=== PATIENT | female | born 1940 | race Caucasian/White ===

== ENCOUNTER → 2020-06-11 10:50 | Outpatient (BNVA) | payer MEDICARE, SELFPAY | PROVIDERS: Family Provider Internal Medicine; PCP Family Medicine; Referring Provider Family Medicine; Visit Provider Dermatology | DX: L57.0 Actinic keratosis (principal); L82.0 Inflamed seborrheic keratosis | CPT/HCPCS: 17000; 17003; 99203 ==

== ENCOUNTER → 2020-09-03 11:18 | Outpatient (BNVA) | payer MEDICARE, SELFPAY | PROVIDERS: Family Provider Internal Medicine; PCP Family Medicine; Visit Provider Dermatology | DX: D48.9 Neoplasm of uncertain behavior, unspecified (principal) | CPT/HCPCS: 88304 ==

== ENCOUNTER 2022-05-18 06:00 | Outpatient (RCR) | payer MEDICARE, SELFPAY | END 2022-06-12 23:59 | disposition home or self-care (01) | LOC: SPT 06:00 | PROVIDERS: PCP Family Medicine; Referring Provider Orthopaedic Surgery; Visit Provider Orthopaedic Surgery | DX: M17.11 Unilateral primary osteoarthritis, right knee (principal) | CPT/HCPCS: 97110; 97161 ==

== ENCOUNTER → 2023-01-26 12:59 | Outpatient (BNVA) | payer MEDICARE, SELFPAY | PROVIDERS: PCP Family Medicine; Visit Provider Orthopaedic Surgery | DX: M43.16 Spondylolisthesis, lumbar region (principal) | CPT/HCPCS: 72110; 99214 ==

== ENCOUNTER 2023-02-27 10:43 | Outpatient (CLI) | payer MEDICARE, SELFPAY ==
--- NOTE | 2023-02-27 11:00 | MR_ITS ---
WS: [id number] MRI LUMBAR SPINE NONCONTRAST TECHNIQUE: Sagittal T1, T2 and STIR imaging. Axial T1 and T2 imaging. CLINICAL INFORMATION: lumbar pain COMPARISON: None. FINDINGS: Lumbar scoliosis. No acute compression. Grade 1 anterolisthesis L4 on L5 measuring 7 mm. Slight retrolisthesis T12 on L1, L1 on L2, and L2 on L3. L1-L2: Mild disc osteophyte complex endplate ridging. Impingement LEFT subarticular recess and sonal sing L2 nerve root. Moderate LEFT foraminal narrowing. Moderate facet arthropathy. L2-L3: Mild disc bulging with slight impingement traversing L3 nerve roots bilaterally LEFT greater t munoz RIGHT. Moderate facet arthropathy. Moderate LEFT and mild RIGHT foraminal narrowing. L3-L4: Mild disc bulging with moderate central canal stenosis. Impingement traversing L4 nerve root g reater than LEFT. Moderate facet arthropathy and ligamentum flavum hypertrophy. Moderate RIGHT forami nal narrowing. L4-L5: Grade 1 anterolisthesis L4 on L5 with moderate to severe central canal stenosis with impingeme nt traversing L5 nerve roots bilaterally. Moderate to advanced facet arthropathy with ligamentum flav um hypertrophy. Moderate RIGHT foraminal narrowing. L5-S1: Mild disc bulging with slight effacement of ventral thecal sac. Impingement traversing S1 nerv e roots bilaterally with mild central canal stenosis. Moderate facet arthropathy. Mild bilateral fora moises narrowing. Visualized pelvic bony structures: Normal. Paravertebral soft tissues: Normal. MR/MR lumbar spine wo con* [id number] IMPRESSION: 1. Mild lumbar curve. No acute compression. Grade 1 anterolisthesis L4 on L5. 2. Moderate to severe central canal stenosis L4-L5 with impingement traversing L5 nerve roots bilaterally. 3. Moderate central canal stenosis L3-L4 with impingement traversing L4 nerve roots. 4. Mild to moderate multilevel foraminal narrowing worse at RIGHT L3-L4, and R IGHT L4-L5. 5. Moderate to advanced facet arthropathy L3-L4 L4-L5 and L5-S1.
== END 2023-02-27 10:44 | disposition home or self-care (01) ==
PROVIDERS: PCP Family Medicine; Visit Provider Orthopaedic Surgery
DX: M43.16 Spondylolisthesis, lumbar region (principal); M43.9 Deforming dorsopathy, unspecified; M48.061 Spinal stenosis, lumbar region without neurogenic claudication; M47.816 Spondylosis without myelopathy or radiculopathy, lumbar region
CPT/HCPCS: 72148

== ENCOUNTER → 2023-03-22 10:36 | Outpatient (BNVA) | payer MEDICARE, SELFPAY | PROVIDERS: PCP Family Medicine; Visit Provider Nurse Practitioner Family | DX: L85.3 Xerosis cutis (principal); Z71.89 Other specified counseling; D22.5 Melanocytic nevi of trunk; L81.4 Other melanin hyperpigmentation; L82.1 Other seborrheic keratosis; L57.8 Other skin changes due to chronic exposure to nonionizing radiation; Z85.820 Personal history of malignant melanoma of skin; Z85.828 Personal history of other malignant neoplasm of skin; Z80.8 Family history of malignant neoplasm of other organs or systems; L98.8 Other specified disorders of the skin and subcutaneous tissue; L57.0 Actinic keratosis | CPT/HCPCS: 17000; 17003; 99214 ==

== ENCOUNTER → 2023-03-28 08:52 | Outpatient (BNVA) | payer MEDICARE, SELFPAY | PROVIDERS: PCP Family Medicine; Visit Provider Orthopaedic Surgery | DX: M43.16 Spondylolisthesis, lumbar region (principal); Z01.818 Encounter for other preprocedural examination | CPT/HCPCS: 36415; 80053; 85025; 99214 ==

== ENCOUNTER 2023-04-19 16:29 | Inpatient (IN) | payer MEDICARE, SELFPAY ==
[2023-04-12 11:16] VITALS: BMI 25.7
--- NOTE | 2023-04-12 11:31 | P.ANESASSM_ITS ---
Pre-Anesthetic Assessment Height/Weight: Height 1.6 m Weight 65.771 kg Operation Date: 04/19/23 13:20 Proposed Procedures p Percutaneous Instrumentation Fusion at L4/5: [id number],M43.16(Not Applicable) - Roosevelt Brewer, Familial anesthetic complications: None Social No alcohol and No tobacco Exam alert, oriented x 3, clear to auscultation bilaterally and regular rate & rhythm Airway Mallampati: Class II Dentition: false CV/HEM Hypertension Metabolic Hyperlipidemia Anesthetic Plan ASA status: 2 Anesthesia: General Risk of > 500 ml blood loss (7ml/kg in children): No Medications/Allergies Home Medications Medication Instructions Recorded Confirmed Last Taken Type atorvastatin 10 mg tablet 10 mg PO DAILY 06/11/20 04/12/23 04/12/23 History lisinopril 20 mg tablet 20 mg PO BID 06/11/20 04/12/23 04/12/23 History oxybutynin chloride 15 mg 15 mg PO DAILY 06/11/20 04/12/23 04/12/23 History tablet,extended release 24 hr amlodipine 5 mg tablet 5 mg PO DAILY 06/06/22 04/12/23 04/12/23 History docusate sodium 100 mg capsule 100 mg PO DAILY 06/06/22 04/12/23 04/12/23 History intraoperative neuromonitoring #1 ea 04/07/23 Unknown Rx meloxicam 15 mg tablet 15 mg PO DAILY 04/12/23 04/12/23 04/12/23 History Allergies Allergy/AdvReac Type Severity Reaction Status Date / Time No Known Allergies Allergy Verified 04/12/23 11:14 [facility] Anesthesia Medical History (Updated 04/12/23 @ 09:42 by Abbie Cartagena MD) History of malignant melanoma HTN (hypertension) Surgical History History of left knee replacement Family History Sister Cancer Social History Smoking and tobacco status: never smoked Alcohol intake: never Data Anesthesia Cardiac Studies: No Data to Display
[2023-04-19] VITALS (27 sets, daily range): BP systolic 109–157; BP diastolic 64–89; PULSE 47–78; RESP 15–18; TEMP 36.1–37.2; O2SAT 90–99
--- NOTE | 2023-04-19 | XR_ITS ---
WS: [id number] Lumbar spine, C-arm fluoroscopy views, 04/19/2023 Clinical Data: percutaneous lumbar fusion L4-5 Comparison: Lumbar spine, 01/26/2023 Findings: Dr. Brewre performed a posterior lumbosacral fusion L4-L1 XR/XR lumbar spine 2-3V* [id number] Impression: Posterior lumbosacral fusion.
[2023-04-19] MEDS: sodium chloride 0.9% 1,000 ML 30 ML IV (09:43)
--- NOTE | 2023-04-19 09:46 | W.PM.OPSUD ---
Surgery/Procedure H&P Update DATE OF PROCEDURE: April 19, 2023 DATE H&P PERFORMED: 03/28/23 H&P UPDATE INFORMATION: I have reviewed H&P completed within last 30 days, I have examined patient prior to procedure and No changes to prior documentation PREOP DIAGNOSIS: DDD Lumbar, spondylolisthesis L4-5, PLANNED PROCEDURE: Operation Date: 04/19/23 10:20 Proposed Procedures p Percutaneous Instrumentation Fusion at L4/5: [id number],M43.16(Not Applicable) - Roosevelt Brewer DO
[2023-04-19] MEDS: ceFAZolin 2,000 MG in sodium chloride 0.9% (plus) 50 ML 100 MG IV ×2 (10:32→17:41)
[2023-04-19] MEDS: lidocaine-epi 2% 20 mL INJ INJECTION (11:02)
--- NOTE | 2023-04-19 13:00 | P.OP_ITS ---
Operative Report Date of procedure: April 19, 2023 Pre-op diagnosis: Preop Diagnosis DDD Lumbar, spondylolisthesis L4-5, Post-op diagnosis: same Procedure done: 1. L4-S1 posterior spine fusion 2. L4 - S1 instrumentation 3. use of computer navigation / stereotactic 4. use of allograft Surgeon: Roosevelt Brewer Curb Machine Operator: Ruben Phillips Curb Machine Operator: The surgical corsetier, Ruben Phillips, PAC was needed for his expertise with spine surgery. He was important and necessary throughout the procedure to complete in a safe and timely manner. He assisted with patient positioning prepping and draping tissue retraction suctioning of the operative field protection of thecritical structures and tissue closure Estimated blood loss (mL): 50 Procedure: 1. L4-S1 posterior spine fusion 2. L4 - S1 instrumentation 3. use of computer navigation / stereotactic 4. use of allograft Patient was brought to the operative suite. After undergoing anesthesia patient was placed in the prone position. Neuro monitoring was attached. Patient was then prepped and draped in normal sterile fashion. First step was to place the fiducial for computer navigation. 2 pins were placed into the right iliac crest. The fiducial was attached to the iliac crest. In the serum was spun around the patient. The information from serum was then loaded in the computer for later use with the computer navigation. This was later used for the placement of the pedicle screws. Next tension was brought to placing the pedicle screws. This was done by placing a computer navigated awl. Followed by placing a wire. After the wire was placed blunt dissection was made down to the facets. The drill was then placed and the facets were decorticated. Ostial amp bone graft was then packed into the facets. And then the wire was pulled. And then a computer navigated pedicle screw was then placed. This process was repeated at S1 bilaterally, L5 bilaterally, and L4 bilaterally. After the screws were placed the neuro monitoring probe was used to check that the screws were not having any interference with any of the pedicle screws using the neuro monitoring. Once all the screws were placed C-arm was brought in to confirm the location. After this was completed then the rods were placed subcutaneously into the screws. Once the rods were placed in the screw tulips. The caps were then placed to lock the stanley into position. The screw caps were then torqued and locked into position. The towers were then broken off of the screws. AP and lateral fluoroscopy were brought in to ensure that the rods and screws were in the appropriate position. Was then irrigated and closed with Vicryl and Monocryl suture. Sterile dressings were applied. Patient was then transferred to the PACU in stable condition.
[2023-04-19] MEDS: HYDROmorphone 1 mg/mL INJ 1 mL 0.5 MG IVP ×3 (13:01→13:30)
[2023-04-19] MEDS: ketorolac 30 mg/mL INJ IVP (14:30)
--- NOTE | 2023-04-19 14:58 | SUR.EXTENDED ---
patient is awake and alert. patient has 2L o2 by WA with sats at 97%. patient has had pain in back, medicated per orders. patient has landeros draining urine. also has SCD in place on both legs. patients in room with her, son in room too.
[2023-04-19] MEDS: HYDROcodone-acetaminophen 5-325 mg Tablet PO ×2 (15:23→21:18)
--- NOTE | 2023-04-19 16:08 | SUR.EXTENDED ---
patient care being handed over to Yissel LEPE. patient currently comfortable. dressing checked, dry and intact. landeros emptied. patient awake and alert on 2L O2
--- NOTE | 2023-04-19 16:14 | SUR.EXTENDED ---
report called to Ting LEPE
--- NOTE | 2023-04-19 17:00 | ANE.PACU2 ---
Inpatient post-anesthesia follow up: Airway intact: Yes Vital signs: Temperature 98.4 F Pulse Rate 63 Respiratory Rate 18 Blood Pressure 108/57 Pulse Oximetry 93 Oxygen Delivery Me thod [ Nasal Cannula Current Rate & Del bryan] Oxygen Delivery Me thod Room Air Oxygen Flow Rate [ Current Rate 1 & Delivery] Oxygen Flow Rate 1 Fraction of Inspir ed Oxygen Hydration adequate: Yes Nausea and vomiting: No Pain level: 1 Mental status: Baseline
[2023-04-19] MEDS: docusate sodium 100 mg Capsule PO (17:24)
[2023-04-19] MEDS: lactated ringers 1,000 ML 90 ML IV (17:24)
[2023-04-19] MEDS: lisinopril 20 mg Tablet PO (17:25)
[2023-04-20] MEDS: diphenhydrAMINE 50 mg Capsule PO (00:45)
[2023-04-20] MEDS: ceFAZolin 2,000 MG in sodium chloride 0.9% (plus) 50 ML 100 MG IV ×2 (03:22→11:01)
[2023-04-20] MEDS: lactated ringers 1,000 ML 90 ML IV (03:25)
[2023-04-20 04:00] VITALS: BP 115/68; PULSE 51; RESP 16; TEMP 37.1; O2SAT 96
--- NOTE | 2023-04-20 07:24 | PM.PN ---
Subjective Subjective: POD 1 Patient resting comfortably. Reports moderate back pain. Denies any chest pain, shortness of breath, headaches. Vitals/I&O/Wt Last Vital Signs Temp 98.7 F 04/20/23 04:00 Pulse 51 L 04/20/23 04:00 Resp 16 04/20/23 04:00 BP 115/68 04/20/23 04:00 Pulse Ox 96 04/20/23 04:00 O2 Del Method Room Air 04/20/23 04:00 O2 Flow Rate 1 04/19/23 23:51 04/19/23 04/20/23 04/20/23 22:59 06:59 14:59 Intake Total 998 / 1048 951.5 / 1999.5 Output Total 300 / 520 500 / 1020 Balance 698 / 528 451.5 / 979.5 Physical Exam Narrative: Patient presents alert and oriented x3 with a good general appearance normal mood and affect. Normal coordination normal stability. Mild tenderness around the incisional site with the incision appear to be healing nicely. No signs of erythema or drainage. No signs of infection. Patient denies any fevers or chills. 5/5 motor strength both lower extremities with negative straight leg raise bilaterally. Calves are supple no medial thigh tenderness. Pulses are 2+ at the dorsalis pedis and posterior tibial region. Good capillary refill throughout normal sensation light touch both lower extremities. Urinary Catheter Management: Saul: Cath Placed During This Visit: yes Reason for Continuing Indwelling Catheter: Other Urinary Catheter Date of Insertion: 04/19/23 Urinary Catheter Time of Insertion: 10:45 A&P Assessment and plan (1) Status post lumbar spinal fusion: We will discontinue Saul catheter. Physical therapy to evaluate. Discussed with the patient no bending lifting or twisting. Home with incentive spirometer for pulmonary toilet. We will see her back in the office in 1 week's time for a wound check. Attestations Medical Necessity Statement*: Discharge home later this morning Coding Level of Care Code Acute Code for Chg Fwd Diagnoses Status post lumbar spinal fusion Z98.1
[2023-04-20] MEDS: HYDROcodone-acetaminophen 5-325 mg Tablet PO (07:50)
[2023-04-20] MEDS: oxybutynin chloride XL 5 MG TABLET 15 MG PO (07:50)
[2023-04-20 07:51] VITALS: BP 130/73; PULSE 56; RESP 18; TEMP 36.6; O2SAT 94
[2023-04-20] MEDS: amlodipine 5 mg Tablet PO (07:51)
[2023-04-20] MEDS: meloxicam 7.5 mg tablet 15 MG PO (07:51)
[2023-04-20] MEDS: atorvastatin 40 mg Tablet 20 MG PO (07:52)
[2023-04-20] MEDS: docusate sodium 100 mg Capsule PO (07:52)
[2023-04-20] MEDS: lisinopril 20 mg Tablet PO (07:53)
[2023-04-20 08:26] VITALS: PULSE 63; O2SAT 94
--- NOTE | 2023-04-20 10:40 | PC.CHAP ---
Pastoral Care Encounter/Spiritual Assessment Type of Contact [] Declined tanning wheel filler visit [] Patient/Family/Request visit [] Outpatient visit [] Follow-up visit [] Physician referral [] Code/Alert [x] Routine visit [] Staff referral [] Actively dying [] Patient sleeping [] Family support [] [] Out of room [] Palliative care [] [x] Receiving care in room [] Pre-surgical visit [] Trauma [] Long length of stay [] ICU visit [] Other: Relational/Emotional Strength [x] Patient feels connected with others/family/visitors/staff [] Distress [] Loneliness/isolation [] Abandonment Spirituality of Patient [x] Person of Nicolette [] Attends Christianity of their Nicolette [x] Believes in Prayer [] Reads Bible or Methodist materials [] There are Spiritual issues to be addressed Storekeeper Steward Interventions [x] Prayer [x] Active listening [x] Non-anxious presence [x] Spiritual/emotional support [] Crisis/trauma care [x] Spiritual counseling [] Bereavement support [] Provided bereavement packet [] Provided Bible/devotional materials [] Provided toy/stuffed animal, coloring book to patient or family member [] Provided Communion [] Anointing/Mohler [] Salvation [x] Completed spiritual assessment [] Other: Impact on Illness or Injury [] Angry [] Fearful [] Anxious [] Often cries [] Exhaustion [] Unable to work [] Unable to attend congregation [] Unable to walk/stand [] Unable to read [] Unable to drive [] Unable to eat/drink [] Unable to sleep [] Unable to be with family [] Patient intubated [] Other: had back surgery in some pain well have some rehab when she goes home has good attitude +1 family Time spent with patient 10 mins
[2023-04-20 11:49] VITALS: BP 108/57; PULSE 63; RESP 18; TEMP 36.9; O2SAT 93
[2023-04-20 13:15] VITALS: BP 108/57; PULSE 63; RESP 18; TEMP 36.9; O2SAT 93
--- NOTE | 2023-04-21 10:56 | P.DS_ITS ---
Discharge Providers Date of Admission: 04/19/23 16:29 Date of Discharge: April 20, 2023 Attending Provider at Admission: Roosevelt Brewer DO Attending Provider at Discharge: Roosevelt Brewer DO Primary Care Provider: Ashley Cash MD Diagnoses at Discharge Discharge Diagnosis (1) Status post lumbar spinal fusion: Status: Acute Reason for Visit Reason for Visit: M43.16 Physical Exam Urinary Catheter Management: Saul: Cath Placed During This Visit: yes, but has since been removed by the nurse Reason for Continuing Indwelling Catheter: Decision to DC Catheter Urinary Catheter Date of Insertion: 04/19/23 Urinary Catheter Time of Insertion: 10:45 Date Urinary Catheter Removed: 04/20/23 Time Urinary Catheter Discontinued: 08:00 Discharge Data Studies Completed and Pending Completed Studies During Hospitalization Category Date Time Status XR lumbar spine 2-3V* [id number] Routine Exams 04/19/23 Completed Radiology Impressions Lumbar Spine X-Ray 04/19/23 00:00 Impression: Posterior lumbosacral fusion. Vitals Last Vital Signs Temp 98.4 F 04/20/23 13:15 Pulse 63 04/20/23 13:15 Resp 18 04/20/23 13:15 BP 108/57 04/20/23 13:15 Pulse Ox 93 04/20/23 13:15 O2 Del Method Room Air 04/20/23 11:49 O2 Flow Rate 1 04/20/23 08:26 Discharge Plan Discharge Patient Disposition: Home Condition: Stable Prescriptions: New hydrocodone-acetaminophen 5-325 mg Tablet 1 - 2 tab PO Q4H PRN (Reason: Postoperative pain) Qty: 40 0RF Continued docusate sodium 100 mg capsule 100 mg PO DAILY amlodipine 5 mg tablet 5 mg PO DAILY oxybutynin chloride 15 mg tablet extended release 24hr 15 mg PO DAILY lisinopril 20 mg tablet 20 mg PO BID atorvastatin 10 mg tablet 10 mg PO DAILY (DME) intraoperative neuromonitoring See Rx Instructions .Route .MEDSUPPLY Qty: 1 0RF Rx Instructions: As directed Held meloxicam 15 mg tablet 15 mg PO DAILY Hold Instructions: Resume on 05/18/23. Discharge Orders: Discharge Order (Routine); Ordered 04/20/23 Ordered By: Ruben Phillips Referrals: Roosevelt Brewer DO [Physician] - 05/02/23 8:45 am () Discharge Diet: Advance as tolerated Discharge Activity: Limit activity as instructed Patient Instructions: Hydrocodone/Acetaminophen (By mouth), Lumbar Spinal Fusion (GEN), Opioid Safety Activity Restrictions/Additional Instructions: Thank you for choosing [facility] for your care! The following is a list of instructions, from your provider, to follow upon your discharge to ensure you have the optimal recovery from your recent injury or surgery. Follow-up care is a chase part of your treatment and safety. Be sure to make and go to all appointments and call your doctor if you are having problems. If you do not already have a follow-up appointment made, call Dr. Brewer's] office in the next 1-3 days to make follow up appointment for [1-2] weeks at [phone]. It is also a good idea to know your test results and keep a list of the medicines you take. Medications will be prescribed for you at your provider's discretion. These medications are to be used as instructed; if they are taken more often that prescribed they will not be refilled early and in most cases will not be refilled at all. > When a refill is needed, you should contact lloyd griffith 2-3 business days before your prescription runs out. Medications will NOT be refilled by medical radiation therapist providers after hours! > Many pain medications contain Tylenol (Acetaminophen). Do not consume more than 4,000 mg of Tylenol per day in total with any combination of medications. > Pain medications can cause constipation. Please use an over the counter stool softener as directed, while taking pain medications. Consult your local pharmacist with questions or recommendations on stool softeners. If constipation persists, contact our office or your primary care provider. > While under our care, you are not to receive pain medications or other controlled substances from any other provider unless our office is notified and approves. Any attempts to do so will result in refusal to prescribe any further pain medications and possible dismissal from our practice. ? Walking is essential for the healing process after surgery. We would like you to slowly advance your walking. This should be done on relatively flat clear ground (inside or out) or can be done on a treadmill. Remember this goal does not have to happen all at once, slowly increase your d istance and duration. This can be broken into more more than one walk per day as tolerated. Patients who walk as directed after surgery rarely require Physical Therapy. In the unlikely event this issue arises your provider will direct hospital staff to make the appropriate arrangements. ? No lifting over 5 pounds {a gallon of milk) or bending/twisting until further notice. Each of these activities places an unnecessary amount of stress onto the body and can impede the delicate healing process. > Instead of bending at the waist, keep your back straight and bend at the knees. > Instead of twisting your torso, keep your back straight and turn your entire body with your feet. ? You may sleep in any position which makes you comfortable. Many patients find comfort sleeping in a reclining chair. It is not abnormal to have difficulty sleeping for the first several weeks following your surgery. We recommend trying Benadry! or Tylenol PM as directed to help with your sleeping difficulties. Both medications are over the counter and available without prescription. ? NO SMOKING!!! Smoking dramatically increases the probability of developing postoperative wound infections. ? Common complaints after lumbar and/or thoracic spine surgery include, but are not limited to: numbness and/or tingling in the legs, pain around the incision and surrounding tissues, muscle spasms, or stiffness of the middle to low back. Contact our office if these symptoms persist or if an acute change occurs. ? No driving for the first 3-5days, and not while taking narcotics until seen at your follow-up appointment and cleared. There are no restrictions for riding on short trips, however if you take a longer trip, arrangements should be made to make regular stops to get out of the vehicle and stretch . ? Swelling is an unfortunate event that will take place with any surgery and is the primary source of your postoperative discomfort. While walking and regular approved activities helps control inflammation, there are additional steps you can take to minimize swelling. > Place ice over the surgical site and surrounding tissue for twenty minutes, followed by applying a low/medium heat (heating pad) for an additional twenty minutes every 1-2 hours as needed for painrelief. > You may use of over the counter anti-inflammatory medications (Ibuprofen, Motrin, Aleve, Advil, etc) as directed on the package label. These types of medicines will significantly reduce the amount of discomfort you experience after surgery from swelling. It should be noted that if you have and allergy to any of these medications, or a history of ulcers or kidney disease you should consult you primary care provider prior to starting these medications. Discharge Attestations Time Spent in Discharge Care*: less than 30 min Quality Metrics Clinical Quality Measures [ No reported AMI, CVA or VTE this stay] Coding Level of Care Code Acute Code for Chg Fwd Diagnoses Status post lumbar spinal fusion Z98.1
== END 2023-04-20 13:00 | disposition home or self-care (01) | DRG 460 ==
LOC: MEDSURG 20:44
PROVIDERS: Admitting Provider Orthopaedic Surgery; PCP Family Medicine; Visit Provider Orthopaedic Surgery
PROC: 0SG03AJ Fusion of Lumbar Vertebral Joint with Interbody Fusion Device, Posterior Approach, Anterior Column, Percutaneous Approach (ICD-10-PCS; principal; 2023-04-19 10:10)
DX: M43.16 Spondylolisthesis, lumbar region (principal); M51.36 Other intervertebral disc degeneration, lumbar region; I10 Essential (primary) hypertension
CPT/HCPCS: 51702; 72100; 97161; 97530; C1713 ×2; C9359; J0690; J1100; J1170; J1885; J2405; J2704; J3010; J3490; J7030; J7120; Q0163

== ENCOUNTER → 2023-05-02 08:30 | Outpatient (BNVA) | payer MEDICARE, SELFPAY | PROVIDERS: PCP Family Medicine; Visit Provider Orthopaedic Surgery | DX: Z98.1 Arthrodesis status (principal) | CPT/HCPCS: 99024 ==

== ENCOUNTER → 2023-05-30 10:53 | Outpatient (BNVA) | payer MEDICARE, SELFPAY | PROVIDERS: PCP Family Medicine; Visit Provider Orthopaedic Surgery | DX: Z98.1 Arthrodesis status (principal) | CPT/HCPCS: 72100; 99024 ==

== ENCOUNTER → 2023-07-18 11:02 | Outpatient (BNVA) | payer MEDICARE, SELFPAY | PROVIDERS: PCP Family Medicine; Visit Provider Physician Assistant | DX: Z47.89 Encounter for other orthopedic aftercare (principal); Z98.1 Arthrodesis status | CPT/HCPCS: 72100; 99024; 99213 ==

== ENCOUNTER → 2023-08-30 10:00 | Outpatient (BNVA) | payer MEDICARE, SELFPAY | PROVIDERS: PCP Family Medicine; Visit Provider Physician Assistant | DX: Z98.1 Arthrodesis status (principal) | CPT/HCPCS: 72100; 99213 ==

== ENCOUNTER → 2024-02-20 10:18 | Outpatient (BNVA) | payer MEDICARE, MEDICAID, SELFPAY | PROVIDERS: PCP Family Medicine; Visit Provider Orthopaedic Surgery | DX: Z98.1 Arthrodesis status (principal) | CPT/HCPCS: 72100; 99213 ==

== ENCOUNTER → 2024-03-05 10:08 | Outpatient (BNVA) | payer MEDICARE, MEDICAID, SELFPAY | PROVIDERS: PCP Family Medicine; Visit Provider Orthopaedic Surgery | DX: Z98.1 Arthrodesis status (principal); M54.50 Low back pain, unspecified; G89.29 Other chronic pain | CPT/HCPCS: 72100; 99213 ==

== ENCOUNTER 2024-05-24 10:04 | Emergency (ER) | payer MEDICARE, MEDICAID, SELFPAY ==
[2024-05-24 10:07] VITALS: BP 113/72; PULSE 59; RESP 16; TEMP 36.9; O2SAT 95; BMI 25.1
[2024-05-24 10:30] LABS: Basophils # 0.1 10^3/uL (0.0-0.1); Basophils % 0.6 %; Hematocrit 35.1 % (36-47); Lymphocytes # 2.2 10^3/uL (0.8-4.8); Mean Corpuscular HGB Conc 32.2 g/dL (30-55); Mean Corpuscular Hemoglobin 29.5 pg (27-33); Mean Corpuscular Volume 91.6 fl (85-98); Mean Platelet Volume 9.6 fL (7.4-10.4); Monocytes # 0.7 10^3/uL (0.2-0.9); Monocytes % 8.2 %; Neutrophils % 64.7 %; Nucleated Red Blood Cells % 0 %; Platelet Count 286 10^3/cmm (157-399); Red Blood Count 3.83 10^6/uL (3.85-5.65); Red Cell Distribution Width 13.2 % (12.1-15.1); White Blood Count 8.34 10^3/uL (3.29-11.43)
--- NOTE | 2024-05-24 10:34 | CTR_ITS ---
PROCEDURE INFORMATION: Exam: CT Abdomen And Pelvis With Contrast Exam date and time: 05/24/2024 11:12 AM Age: 83 years old Clinical indication: Abdominal pain; Localized; Right lower quadrant (rlq); Additional info: Abdominal pain/back pain, rlq TECHNIQUE: Imaging protocol: Computed tomography of the abdomen and pelvis with contrast. Radiation optimization: All CT scans at this facility use at least one of these dose optimization techniques: automated exposure control; mA and/or kV adjustment per patient size (includes targeted exams where dose is matched to clinical indication); or iterative reconstruction. Contrast material: OMNI 350; Contrast volume: 100 ml; Contrast route: INTRAVENOUS (IV); COMPARISON: CR XR lumbar spine 2-3V* [id number] 03/05/2024 10:24 AM RADIATION DOSE METRICS: Total DLP (mGy-cm): 483.65 FINDINGS: Lungs: Lung bases are clear as visualized. Diaphragm: There is a [id number] size hiatal hernia. Liver: There is mild fatty infiltration of the liver. The liver is otherwise normal. Gallbladder and biliary ducts: The gallbladder is distended. No gallstones are appreciated. No pericholecystic inflammatory change is identified. The common bile duct measures a proximally 8-9 mm in size which is within normal range for patient's age. Pancreas: Normal. No ductal dilation. Spleen: Normal. No splenomegaly. Adrenal glands: Normal. No mass. Kidneys and ureters: There is cortical scarring involving both kidneys. No renal calculi are identified. No hydronephrosis is noted. Stomach and bowel: No dilated loops of large or small bowel is appreciated. There are scattered colonic diverticula. No bowel wall thickening is appreciated. Appendix: No evidence of appendicitis. Intraperitoneal space: Unremarkable. No free air. No significant fluid collection. Vasculature: The aorta is normal in caliber. There is calcified plaque involving the aorta and its branch vessels. Lymph nodes: Unremarkable. No enlarged lymph nodes. Urinary bladder: Unremarkable as visualized. Reproductive: Unremarkable as visualized. Bones/joints: There are postoperative changes involving the lower lumbar spine. No blastic or lytic bony lesions are appreciated. Soft tissues: Unremarkable. CT/CT abdomen pelvis w con* [id number] IMPRESSION: 1. Distended gallbladder. While no gallstones or pericholecystic inflammatory change is identified, if cholecystitis is a clinical concern, further evaluation with ultrasound may add additional information. 2. Please see above comments for additional details.
--- NOTE | 2024-05-24 10:34 | ED_ITS ---
HPI - Back Pain/Injury 2 General: Chief Complaint: Abdominal Pain Stated Complaint: abd pain Time Seen by Provider: 05/24/24 10:07 Source: patient Mode of arrival: ambulatory Limitations: no limitations History of Present Illness: Patient is a nice 83-year-old female who presents to the ED today with a complaint of mid back and flank pains over the past 3 days or so. She feels like pain radiates into the right side of her abdomen. She is not having any urinary symptoms. No history of kidney or ureter stones. No fevers. She is not having any chest pain, shortness of breath, difficulty breathing. No lower extremity pain or color/temperature changes. She has not had any changes in bowel movements. She states she does have a history of chronic back pain. She has been seen previously for upper/mid back pains. She thinks symptoms possibly started after trying to kick a door closed. MD elicited complaint: back pain Onset (ago): day(s) Timing: constant Severity: moderate Location: thoracic spine, left flank and right flank Radiation: abdomen Exacerbating factors: none Relieving factors: none Associated symptoms: Reports abdominal pain; Deny chills, change in bowel habits, difficulty walking, dysuria, fatigue, fever(s), nausea, urinary urgency or vomiting Work related injury: No Review of Systems 2 Const: Denies: fever(s), chills, body aches, fatigue or malaise Card: Denies: chest pain Resp: Denies: dyspnea GI: Reports: abdominal pain; Denies: nausea, vomiting or change in bowel habits : Reports: flank pain; Denies: difficulty voiding, dysuria, urinary frequency, urinary urgency or urinary hesitancy Musc: Reports: back pain; Denies: neck pain, extremity pain, extremity swelling, joint pain or joint swelling Skin/Breast: Denies: rash Neuro: Denies: headache(s), numbness in extremities, weakness in extremities, sensory changes or difficulty walking PFSH ED 2 PFSH: Medical History History of malignant melanoma HTN (hypertension) Surgical History History of left knee replacement Family History Sister Cancer Social History Smoking and tobacco/nicotine status: never used tobacco/nicotine Alcohol intake: never Physical Exam 2 Const: COMMON NORMALS: no acute distress, average body habitus, patient oriented x3, no limitations, healthy appearing, alert and well nourished Neck/C-Spine: COMMON NORMALS: full ROM GENERAL: Yes normal visual inspection CERVICAL SPINE: No pain with cervical ROM and No Cervical spine tenderness Chest: COMMONS NORMALS: normal inspection of the chest and normal palpation of entire chest wall Resp: COMMON NORMALS: normal respiratory effort and clear to auscultation bilaterally AUSCULTATION: clear to auscultation bilaterally Cardio: COMMON NORMALS: regular rate and regular rhythm RATE: regular rate RHYTHM: regular rhythm GI: COMMON NORMALS: Normal to inspection, nondistended, normoactive bowel sounds present, Soft to palpation, No hepatosplenomegaly present and no masses INSPECTION: Yes normal to inspection AUSCULTATION: Yes normoactive bowel sounds PALPATION: Yes Soft to palpation, Yes Tenderness to palpation present (GI) Details: RLQ and Yes No hepatosplenomegaly present : BLADDER/KIDNEY EXAM: Yes CVA tenderness bilateral Back/Pelvis: GENERAL BACK: Yes CVA tenderness THORACIC SPINE/UPPER BACK: Y es pain with ROM, Yes thoracic spinal tenderness, Yes paraspinal muscle tenderness and No paraspinal muscle spasm LUMBAR SPINE/LOWER BACK: No lumbar spinal tenderness PELVIS: Yes buttocks normal and No sciatic notch tenderness SACRUM: no tenderness COCCYX: no tenderness Extremity: COMMON NORMALS: normal to inspection, capillary refill normal, no clubbing, cyanosis or edema, no calf tenderness and no pedal edema NARRATIVE EXTREMITY EXAM: peripheral pulses normal GENERAL: Yes normal exam except as noted Neuro: COMMON NORMALS: patient oriented x3, moves all extremities, no focal motor deficits and no sensory deficits noted SENSORIUM/ORIENTATION: Yes alert Skin: COMMON NORMALS: no rashes or lesions noted GENERAL SKIN EXAM: no rashes or lesions noted Course 2 Vital Signs: Vital signs: Vital Signs Temperature 98.5 F 05/24/24 10:07 Pulse Rate 48 L 05/24/24 12:00 Respiratory Rate 16 05/24/24 12:00 Blood Pressure 106/52 05/24/24 12:00 Pulse Oximetry 93 05/24/24 12:00 Oxygen Delivery Me thod Room Air 05/24/24 12:00 MDM - Back Pain/Injury Medical Decision Making Patient is an 83-year-old here for back pain. [place] like there was some radicular pain into her right lower abdomen. Blood work overall is unremarkable. UA is suspicious for infection with 2+ leuks and 10-[address] on abx to cover for ascending infection. Other DDx includes musculoskeletal back strain, thoracic fracture/radiculopathy. Recommend follow up with PCP next week if symptoms are not improving. Differential Diagnosis Likely thoracic back pain Medical Records I reviewed the patient's medical records. Labs I reviewed the patient's lab results. 05/24/24 10:24 05/24/24 10:24 Radiology Impressions Abdomen/Pelvis CT 05/24/24 10:34 IMPRESSION: 1. Distended gallbladder. While no gallstones or pericholecystic inflammatory change is identified, if cholecystitis is a clinical concern, further evaluation with ultrasound may add additional information. 2. Please see above comments for additional details. Gallbladder Ultrasound 05/24/24 11:48 IMPRESSION: Large gallbladder. Laboratory Results WBC 8.34 10^3/uL (3.29-11.43) 05/24/24 10:24 RBC 3.83 10^6/uL (3.85-5.65) L 05/24/24 10:24 Hgb 11.30 g/dL (11.27-16.99) 05/24/24 10:24 Hct 35.1 % (36-47) L 05/24/24 10:24 MCV 91.6 fl (85-98) 05/24/24 10:24 MCH 29.5 pg (27-33) 05/24/24 10:24 MCHC 32.2 g/dL (30-55) 05/24/24 10:24 RDW 13.2 % (12.1-15.1) 05/24/24 10:24 Plt Count 286 10^3/cmm (157-399) 05/24/24 10:24 MPV 9.6 fL (7.4-10.4) 05/24/24 10:24 Neut % (Auto) 64.7 % 05/24/24 10:24 Lymph % (Auto) 26.0 % 05/24/24 10:24 [place] % (Auto) 8.2 % 05/24/24 10:24 Eos % (Auto) 0.0 % 05/24/24 10:24 Baso % (Auto) 0.6 % 05/24/24 10:24 Neut # (Auto) 5.40 10^3/uL (1.8-7.7) 05/24/24 10:24 Lymph # (Auto) 2.2 10^3/uL (0.8-4.8) 05/24/24 10:24 [place] # (Auto) 0.7 10^3/uL (0.2-0.9) 05/24/24 10:24 Eos # (Auto) 0.0 10^3/uL (0.0-0.8) 05/24/24 10:24 Baso # (Auto) 0.1 10^3/uL (0.0-0.1) 05/24/24 10:24 Nucleated RBC % (auto) 0 % 05/24/24 10:24 Nucleated RBCs # 0.0 /100WBC 05/24/24 10:24 Sodium 140 mmol/L (136-145) 05/24/24 10:24 Potassium 5.0 mmol/L (3.5-5.1) 05/24/24 10:24 Chloride 105 mmol/L (98-107) 05/24/24 10:24 Carbon Dioxide 23 mmol/L (22-29) 05/24/24 10:24 Anion Gap 17.0 (5-19) 05/24/24 10:24 BUN 21 mg/dL (8-23) 05/24/24 10:24 Creatinine 1.0 mg/dL (0.5-0.9) H 05/24/24 10:24 GFR Calculation Not Reportable 05/24/24 10:24 Glucose 137 mg/dL (65-115) H 05/24/24 10:24 Calculated Osmolality 295 mOsm/kg (285-295) 05/24/24 10:24 Calcium 9.1 mg/dL (8.5-10.5) 05/24/24 10:24 Total Bilirubin 0.5 mg/dL (0.15-1.2) 05/24/24 10:24 AST 17 U/L (0-32) 05/24/24 10:24 ALT 10 U/L (0-33) 05/24/24 10:24 Alkaline Phosphatase 85 U/L (35-105) 05/24/24 10:24 Total Protein 7.5 g/dL (6.6-8.7) 05/24/24 10:24 Albumin 4.4 g/dL (3.5-5.2) 05/24/24 10:24 Globulin 3.1 g/dL (1.3-4.6) 05/24/24 10:24 Lipase 24 U/L (13-60) 05/24/24 10:24 Urine Color Yellow (Yellow) 05/24/24 11:02 Urine Appearance Clear (CLEAR) 05/24/24 11:02 Urine pH 5 (5-7) 05/24/24 11:02 Ur Specific [place] 1.030 (1.005-1.030) 05/24/24 11:02 Urine Protein Neg (Negative) 05/24/24 11:02 Urine Glucose (UA) Norm (Normal) 05/24/24 11:02 Urine Ketones Negative (Negative) 05/24/24 11:02 Urine Blood Neg (Negative) 05/24/24 11:02 Urine Nitrate Negative (Negative) 05/24/24 11:02 Urine Bilirubin Neg (Negative) 05/24/24 11:02 Urine Urobilinogen Norm mg/dL (Negative) 05/24/24 11:02 Ur Leukocyte Esterase 2+ (Negative) H 05/24/24 11:02 Urine RBC 0-4 /hpf (0-2) H 05/24/24 11:02 Urine WBC 10-15 /hpf (0-5) H 05/24/24 11:02 Ur Squamous Epith Cells 5-10 /hpf (0-5) H 05/24/24 11:02 Amorphous Sediment Not Reportable 05/24/24 11:02 Urine Bacteria 1+ /hpf (NONE) H 05/24/24 11:02 Urine Mucus 1+ /hpf 05/24/24 11:02 All radiology interpretation(s) finalized by discharge Discharge Plan Discharge Patient Disposition: Home Clinical Impression: Acute cystitis Qualifiers: Hematuria presence: without hematuria Qualified Code(s): N30.00 - Acute cystitis without hematuria Condition: Stable Prescriptions: New Cipro 500 mg tablet 500 mg PO Q12H Qty: 14 0RF No Action docusate sodium 100 mg capsule 100 mg PO DAILY amlodipine 5 mg tablet 5 mg PO DAILY oxybutynin chloride 15 mg tablet extended release 24hr 15 mg PO DAILY lisinopril 20 mg tablet 20 mg PO BID atorvastatin 10 mg tablet 10 mg PO DAILY meloxicam 15 mg tablet 15 mg PO DAILY Hold Instructions: Resume on 05/18/23. prednisone 20 mg tablet 20 mg PO DAILY Qty: 15 0RF Rx Instructions: 60MG for 3 days, 40MG for 2 days, 20MG randolph 2 days celecoxib [Celebrex] 200 mg capsule 200 mg PO BID Qty: 60 0RF Rx Instructions: take one tab twice a day by mouth (DME) intraoperative neuromonitoring See Rx Instructions .Route .MEDSUPPLY Qty: 1 0RF Rx Instructions: As directed hydrocodone-acetaminophen 5-325 mg tablet 1 - 2 tab PO Q4H PRN (Reason: Post Operative pain) 5 Days Qty: 40 0RF Discharge Orders: Discharge ED (Routine); Ordered 05/24/24 Ordered By: Sisi Mayes Referrals: Ashley Cash MD [Primary Care Provider] - Patient Instructions: Urinary Tract Infection in Older Adults (ED) Coding Level of Care Code ED [employer] for Keke Gray
[2024-05-24 10:48] LABS: Alanine Aminotransferase 10 U/L (0-33); Albumin Level 4.4 g/dL (3.5-5.2); Alkaline Phosphatase 85 U/L (35-105); Aspartate Amino Transferase 17 U/L (0-32); Blood Urea Nitrogen 21 mg/dL (8-23); Calcium 9.1 mg/dL (8.5-10.5); Carbon Dioxide 23 mmol/L (22-29); Chloride 105 mmol/L (98-107); Creatinine Clr Calc Pharmacy 39.8442; Globulin 3.1 g/dL (1.3-4.6); Glucose 137 mg/dL (65-115); Lipase 24 U/L (13-60); Osmolality Calculated 295 mOsm/kg (285-295); Sodium 140 mmol/L (136-145); Total Bilirubin 0.5 mg/dL (0.15-1.2); Total Protein 7.5 g/dL (6.6-8.7)
[2024-05-24] MEDS: iohexol 350 mg/mL 500 mL Btl (per mL) IV (11:14)
[2024-05-24 11:38] LABS: Add Urine Microscopic? YES; Bilirubin Urine Neg (Negative); Blood Urine Neg (Negative); Glucose Urine UA Norm (Normal); Ketones Urine Negative (Negative); Leukocyte Esterase Urine 2+ (Negative); Nitrate Urine Negative (Negative); Protein Urine Neg (Negative); Urine Appearance Clear (CLEAR); Urine Color Yellow (Yellow); Urobilinogen Urine Norm (Negative); pH Urine 5 (5-7)
[2024-05-24 11:39] LABS: Bacteria Urine 1+ /hpf; Mucus Urine 1+ /hpf; RBC Urine 0-4 /hpf (0-2)
--- NOTE | 2024-05-24 11:48 | USR_ITS ---
PROCEDURE INFORMATION: Exam: US Abdomen, Limited; Right Upper Quadrant Exam date and time: 05/24/2024 12:02 PM Age: 83 years old Clinical indication: Abnormal findings; Abnormal radiologic finding of the abdomen; Radiologic exam and body structure: CT abd; Additional info: Abnormal CT findings TECHNIQUE: Imaging protocol: Real time ultrasound of the abdomen with image documentation. Limited exam focused on the right upper quadrant. COMPARISON: CT abdomen pelvis w con* [id number] 05/24/2024 11:12 AM FINDINGS: Liver: Normal. No masses. Gallbladder: Large gallbladder. No stones. This may be physiologic. There is no gallbladder wall thickening. Biliary ducts: Normal. No stones. No dilation. Pancreas: Visualized pancreas is unremarkable. Right kidney: Normal. No mass. No hydronephrosis. US/US gall bladder [id number] IMPRESSION: Large gallbladder.
[2024-05-24 12:00] VITALS: BP 106/52; PULSE 48; RESP 16; O2SAT 93
[2024-05-24 13:02] VITALS: BP 124/72; PULSE 51; RESP 16; TEMP 36.9; O2SAT 95
== END 2024-05-24 13:01 | disposition home or self-care (01) ==
PROVIDERS: Emergency Provider Physician Assistant; PCP Family Medicine
DX: N30.00 Acute cystitis without hematuria (principal); I10 Essential (primary) hypertension
CPT/HCPCS: 36415; 74177; 76705; 80053; 81001; 83690; 85025; 87086; 99285; Q9967

== ENCOUNTER 2025-04-22 07:16 | Emergency (ER) | payer MEDICARE, SELFPAY ==
--- NOTE | 2025-04-22 07:30 | XRR_ITS ---
PROCEDURE INFORMATION: Exam: XR Right Foot Exam date and time: 04/22/2025 7:36 AM Age: 84 years old Clinical indication: Pain; Foot; Right TECHNIQUE: Imaging protocol: Radiologic exam of the right foot. Views: 3 or more views. COMPARISON: No relevant prior studies available. FINDINGS: Bones/joints: There is osteopenia. There are degenerative changes of the 1st and 2nd metatarsophalangeal joints. No acute fracture or dislocation. Soft tissues: Normal. XR/XR foot RT min 3V* [id number] IMPRESSION: No acute osseous abnormality
[2025-04-22 07:31] VITALS: BP 126/61; PULSE 57; RESP 16; TEMP 37.3; O2SAT 95; BMI 24.7
[2025-04-22 07:35] VITALS: BP 126/61; PULSE 57; RESP 16; TEMP 37.3; O2SAT 95
--- NOTE | 2025-04-22 07:46 | W.ED.EXTPRO ---
HPI - Extremity Problem General: Chief complaint: Extremity Injury, Lower Stated complaint: RT foot pain Time Seen by Provider: 04/22/25 07:30 History of Present Illness: 84-year-old female presents to the emergency room with complaints of right foot pain. This been going on for the last couple of months has worsened she cannot recall any particular incident that seem to precipitate it. No previous injuries no trauma no swelling. No abrasion drainage or puncture wounds. She is tried [id number] medications with some no significant improvement Associated symptoms: Deny chest pain, fever(s) or rash Related Data Home Medications ?Medication ?Instructions ?Recorded ?Confirmed atorvastatin 10 mg tablet 10 mg PO DAILY 06/11/20 04/22/25 lisinopril 20 mg tablet 20 mg PO BID 06/11/20 04/22/25 oxybutynin chloride 15 mg 15 mg PO DAILY 06/11/20 04/22/25 tablet,extended release 24 hr amlodipine 5 mg tablet 5 mg PO DAILY 06/06/22 04/22/25 docusate sodium 100 mg capsule 100 mg PO DAILY 06/06/22 04/22/25 meloxicam 15 mg tablet 15 mg PO DAILY 04/12/23 04/22/25 Held on 04/20/23. Instructions: Resume on 05/18/23. Previous Rx's ?Medication ?Instructions ?Recorded intraoperative neuromonitoring #1 ea 04/07/23 hydrocodone 5 mg-acetaminophen 325 1 - 2 tab PO Q4H PRN Post 06/06/23 mg tablet Operative pain 5 days #40 tabs prednisone 20 mg tablet 20 mg PO DAILY back pain #15 tabs 02/20/24 celecoxib 200 mg capsule (Celebrex) 200 mg PO BID Back Pain #60 caps 03/05/24 ciprofloxacin HCl 500 mg tablet 500 mg PO Q12H #14 tabs 05/24/24 (Cipro) cyclobenzaprine 10 mg tablet 10 mg PO TID #14 tabs 05/24/24 ASO #1 ea 04/22/25 PT stabilizer #1 ea 04/22/25 diclofenac sodium 75 mg 75 mg PO Q12H PRN pain #20 tabs 04/22/25 tablet,delayed release Allergies Allergy/AdvReac Type Severity Reaction Status Date / Time No Known Allergies Allergy Verified 04/22/25 08:30 Review of Systems Const: Denies: fever(s) or chills Card: Denies: chest pain Resp: Denies: dyspnea Musc: Denies: back pain Skin/Breast: Denies: rash PFSH ED PFSH: Medical History History of malignant melanoma HTN (hypertension) Surgical History History of left knee replacement Family History Sister Cancer Social History Smoking and tobacco/nicotine status: never used tobacco/nicotine Alcohol intake: never Physical Exam Const: COMMON NORMALS: no acute distress GENERAL APPEARANCE: cooperative and comfortable ORIENTATION/CONSCIOUSNESS: Yes awake, Yes oriented to person, Yes oriented to place and Yes oriented to time HENMT: COMMON NORMALS: normocephalic, atraumatic and hearing grossly normal bilaterally HEAD & SCALP: normocephalic and atraumatic Resp: COMMON NORMALS: normal respiratory effort, No retractions, No use of accessory muscles and clear to auscultation bilaterally AUSCULTATION: clear to auscultation bilaterally Cardio: COMMON NORMALS: regular rate, regular rhythm and No murmurs present (Cardio) RATE: regular rate RHYTHM: regular rhythm Extremity: COMMON NORMALS: normal to inspection, capillary refill normal, no clubbing, cyanosis or edema, no calf tenderness and no pedal edema OTHER: Examination of the right foot neurovascular intact dorsalis pedis posterior tibialis pulse normal sensation normal no swelling no JOSE MARIA no induration pain referred to the tarsometatarsal joint there is no swelling or effusion at that point mild discomfort with palpation and testing of range of motion in the forefoot. Neuro: SENSORIUM/ORIENTATION: Yes oriented to person, Yes oriented to place and Yes oriented to time Skin: COMMON NORMALS: no rashes or lesions noted GENERAL SKIN EXAM: no rashes or lesions noted Course Vital Signs: Vital signs: Vital Signs Temperature 99.1 F 04/22/25 07:35 Pulse Rate 55 L 04/22/25 08:17 Respiratory Rate 16 04/22/25 07:35 Blood Pressure 137/71 04/22/25 08:17 Pulse Oximetry 95 04/22/25 08:17 Oxygen Delivery Me thod Room Air 04/22/25 07:35 MDM - Extremity (Nontraumatic) Medical Decision Making Hold meloxicam and Celebrex give diclofenac to use as needed we are able to get an appointment with the podiatry clinic this morning discharged from the ER to podiatry clinic. Plain x-ray done in the emergency room was negative Lab Data Radiology Impressions Foot X-Ray 04/22/25 07:30 IMPRESSION: No acute osseous abnormality All radiology interpretation(s) finalized by discharge Discharge Plan Discharge Patient Disposition: Home Clinical Impression: Foot pain, right Condition: Stable Prescriptions: New diclofenac sodium 75 mg tablet,delayed release (DR/EC) 75 mg PO Q12H PRN (Reason: pain) Qty: 20 0RF No Action docusate sodium 100 mg capsule 100 mg PO DAILY amlodipine 5 mg tablet 5 mg PO DAILY oxybutynin chloride 15 mg tablet extended release 24hr 15 mg PO DAILY lisinopril 20 mg tablet 20 mg PO BID atorvastatin 10 mg tablet 10 mg PO DAILY meloxicam 15 mg tablet 15 mg PO DAILY prednisone 20 mg tablet 20 mg PO DAILY Qty: 15 0RF Rx Instructions: 60MG for 3 days, 40MG for 2 days, 20MG randolph 2 days (DME) ASO See Rx Instructions .Route .MEDSUPPLY Qty: 1 0RF Rx Instructions: As directed (DME) PT stabilizer See Rx Instructions .Route .MEDSUPPLY Qty: 1 0RF Rx Instructions: As directed celecoxib [Celebrex] 200 mg capsule 200 mg PO BID Qty: 60 0RF Rx Instructions: take one tab twice a day by mouth (DME) intraoperative neuromonitoring See Rx Instructions .Route .MEDSUPPLY Qty: 1 0RF Rx Instructions: As directed hydrocodone-acetaminophen 5-325 mg tablet 1 - 2 tab PO Q4H PRN (Reason: Post Operative pain) 5 Days Qty: 40 0RF Cipro 500 mg tablet 500 mg PO Q12H Qty: 14 0RF cyclobenzaprine 10 mg tablet 10 mg PO TID Qty: 14 0RF Discharge Orders: Discharge ED (Routine); Ordered 04/22/25 Ordered By: Barry Copeland Referrals: Ashley Cash MD [Primary Care Provider, Family Practice] Patient Instructions: Opioid Safety, Pain Management Activity Restrictions/Additional Instructions: Thank you for choosing [facility] for your healthcare needs today. It is very important that you follow up as instructed or that you return to the Emergency Department should you have concerns or if your condition changes or worsens in any way. You are seen in the emergency room with right foot pain which has been going on for several weeks. There is no acute findings on exam or on the x-ray done in the emergency room. Recommend that you follow-up with podiatry. You are given diclofenac to use and lieu of this meloxicam and Celebrex. Print Language: Upper Sorbian Coding Level of Care Code ED [employer] for Keke Gray
[2025-04-22 08:17] VITALS: BP 137/71; PULSE 55; O2SAT 95
== END 2025-04-22 08:19 | disposition home or self-care (01) ==
PROVIDERS: Emergency Provider Family Medicine; PCP Family Medicine
DX: M79.671 Pain in right foot (principal); I10 Essential (primary) hypertension
CPT/HCPCS: 73630; 99283

== ENCOUNTER 2025-04-22 10:55 | Outpatient (CLI) | payer MEDICARE, SELFPAY | END 2025-04-22 10:56 | disposition home or self-care (01) | LOC: SPT 10:56 | PROVIDERS: PCP Family Medicine; Visit Provider Podiatrist Foot & Ankle Surgery | DX: Z46.89 Encounter for fitting and adjustment of other specified devices (principal); M76.829 Posterior tibial tendinitis, unspecified leg | CPT/HCPCS: 99203; L1902 ==

== ENCOUNTER → 2025-06-30 14:56 | Outpatient (BNVA) | payer MEDICARE, SELFPAY | PROVIDERS: PCP Family Medicine; Visit Provider Nurse Practitioner Family | DX: L85.3 Xerosis cutis (principal); D18.01 Hemangioma of skin and subcutaneous tissue; L81.4 Other melanin hyperpigmentation; L57.8 Other skin changes due to chronic exposure to nonionizing radiation; X32.XXXA Exposure to sunlight, initial encounter; L57.0 Actinic keratosis; Z85.820 Personal history of malignant melanoma of skin; Z08 Encounter for follow-up examination after completed treatment for malignant neoplasm; Z85.828 Personal history of other malignant neoplasm of skin; Z80.8 Family history of malignant neoplasm of other organs or systems | CPT/HCPCS: 17000; 99213 ==

== ENCOUNTER 2025-07-02 12:51 | Outpatient (CLI) | payer MEDICARE, SELFPAY ==
--- NOTE | 2025-07-02 12:58 | XR_ITS ---
WS: [id number] SCREENING DEXA SCAN [employer] CLINICAL INFORMATION: ASYMPTOMATIC MENOPAUSAL STATE COMPARISON: None. FINDINGS: The LEFT forearm bone mineral density measures 0.50. This corresponds to a T score score of -4.3 and Z score of -1.4. Left femoral neck bone mineral density measures 0.790 g/cm2. This corresponds to a T score of -1.7 and Z score of 0.5. Right femoral neck bone mineral density measures 0.738 g/cm2. This corresponds to a T score -2.1of and Z score of 0.1. Mean femoral neck bone mineral density measures 0.764 g/cm2. This corresponds to a T score of -1.9 and Z score of 0.3. XR/XR DEXA axial skeleton* [id number] IMPRESSION: Osteoporosis LEFT forearm. Osteopenia femoral necks. Patient's FRAX calculated 10 year probability for major osteoporotic fracture i s 19.6% and osteoporotic hip fracture is 7.2%. Bone mineral density femoral necks decreased -10.2%
== END 2025-07-02 12:52 | disposition home or self-care (01) ==
LOC: RAD 12:53
PROVIDERS: PCP Family Medicine; Visit Provider Family Medicine
DX: Z13.820 Encounter for screening for osteoporosis (principal); Z78.0 Asymptomatic menopausal state; M81.0 Age-related osteoporosis without current pathological fracture; M85.851 Other specified disorders of bone density and structure, right thigh
CPT/HCPCS: 77080

== ENCOUNTER → 2025-07-15 14:13 | Outpatient (BNVA) | payer MEDICARE, SELFPAY | PROVIDERS: PCP Family Medicine; Visit Provider Student in an Organized Health Care Education/Training Program | DX: M79.641 Pain in right hand (principal); M65.331 Trigger finger, right middle finger; G56.03 Carpal tunnel syndrome, bilateral upper limbs | CPT/HCPCS: 20550; 73130; 99204; J3301; J3490 ==

== ENCOUNTER → 2025-08-12 12:59 | Outpatient (BNVA) | payer MEDICARE, SELFPAY | PROVIDERS: PCP Family Medicine; Visit Provider Podiatrist Foot & Ankle Surgery | DX: M76.821 Posterior tibial tendinitis, right leg (principal) | CPT/HCPCS: 99213 ==

== ENCOUNTER → 2025-09-09 13:39 | Outpatient (BNVA) | payer MEDICARE, SELFPAY | PROVIDERS: PCP Family Medicine; Visit Provider Podiatrist Foot & Ankle Surgery | DX: M76.821 Posterior tibial tendinitis, right leg (principal) | CPT/HCPCS: 99213 ==